=== PATIENT | female | born 1980 | race African-American/Black ===

== ENCOUNTER 2018-06-13 16:31 | Emergency (ER) | payer OTHER, MEDICAID ==
[~2018-06-13] VITALS: Ht 167.6 cm; Wt 82.0 kg
[2018-06-13] MEDS ORDERED: PREDNISONE 20MG TABLET PO STA (21:28)
[2018-06-13] MEDS ORDERED: ALBUTEROL (0.083%) 2.5MG/3ML NEB HHN STA (21:28)
[2018-06-13] MEDS ORDERED: IPRATROPIUM BROMIDE (0.02%) 0.5MG/2.5ML NEB HHN STA (21:28)
[2018-06-14 00:30] VITALS: BP 125/68
== END 2018-06-14 00:30 | disposition home or self-care (01) ==
LOC: ER 16:31
DX: J45.901 Unspecified asthma with (acute) exacerbation (principal); F17.200 Nicotine dependence, unspecified, uncomplicated; Z79.51 Long term (current) use of inhaled steroids; Z88.8 Allergy status to other drugs, medicaments and biological substances
CPT/HCPCS: 94640; 99283; J7512; J7611

== ENCOUNTER 2018-09-07 07:59 | Emergency (ER) | payer OTHER ==
[~2018-09-07] VITALS: Ht 167.6 cm; Wt 81.6 kg
[2018-09-07] MEDS ORDERED: PREDNISONE 20MG TABLET PO STA (10:35)
[2018-09-07] MEDS ORDERED: ALBUTEROL (0.083%) 2.5MG/3ML NEB HHN STA (10:35)
[2018-09-07] MEDS ORDERED: IPRATROPIUM BROMIDE (0.02%) 0.5MG/2.5ML NEB HHN STA (10:35)
[2018-09-07 12:20] VITALS: BP 117/79
== END 2018-09-07 12:48 | disposition home or self-care (01) ==
LOC: ER 07:59
DX: B34.9 Viral infection, unspecified (principal); J45.901 Unspecified asthma with (acute) exacerbation
CPT/HCPCS: 71045; 81025; 94644; 99285; J7512; J7611

== ENCOUNTER 2018-10-24 05:13 | Emergency (ER) | payer OTHER ==
[~2018-10-24] VITALS: Ht 167.6 cm; Wt 73.0 kg
[2018-10-24] MEDS ORDERED: IBUPROFEN 600MG TABLET PO ONE (07:00)
[2018-10-24] MEDS ORDERED: ACETAMINOPHEN 325MG TABLET PO ONE (07:00)
[2018-10-24 08:23] VITALS: BP 150/96
== END 2018-10-24 08:24 | disposition home or self-care (01) ==
LOC: ER 05:13
DX: S60.011A Contusion of right thumb without damage to nail, initial encounter (principal); F17.200 Nicotine dependence, unspecified, uncomplicated; J45.909 Unspecified asthma, uncomplicated; W22.8XXA Striking against or struck by other objects, initial encounter; Y93.89 Activity, other specified; Y92.89 Other specified places as the place of occurrence of the external cause; Y99.8 Other external cause status; Z88.4 Allergy status to anesthetic agent; Z88.5 Allergy status to narcotic agent; Z91.018 Allergy to other foods
CPT/HCPCS: 73140; 81025; 99283

== ENCOUNTER 2018-12-06 08:09 | Emergency (ER) | payer OTHER ==
[~2018-12-06] VITALS: Ht 167.6 cm; Wt 73.0 kg
[2018-12-06] MEDS ORDERED: SODIUM CHLORIDE 0.9% 1,000 ML IV ONE (08:42)
[2018-12-06 09:06] LABS: BASOPHILS % 0.8 % (0.0-2.0); EOSINOPHILS % 0.4 % (0.0-5.0); HEMATOCRIT. 35.8 % (36.0-48.0); HEMOGLOBIN. 11.3 g/dL (12.0-16.0); LYMPHOCYTES % 19.8 % (20.0-50.0); MEAN CORPUSCULAR HEMOGLOBIN 25.5 pg (28.0-32.0); MEAN CORPUSCULAR VOLUME 80.4 fL (81.0-99.0); MEAN PLATELET VOLUME 8.7 fl (7.4-10.4); MONOCYTES % 8.5 % (2.0-8.0); NEUTROPHILS % 70.5 % (40.0-76.0); PLATELET 229 x1000/uL (130-400); RED BLOOD CELL COUNT 4.46 mill/uL (4.2-5.4); RED CELL DISTRIBUTION WIDTH 16.4 % (11.6-14.6)
[2018-12-06 09:09] LABS: CHLORIDE 110 mEq/L (98-107)
[2018-12-06 09:14] LABS: ETHANOL BLOOD < 10 mg/dL
[2018-12-06 09:17] LABS: HCG SCREEN NEGATIVE
[2018-12-06 09:28] LABS: PROTHROMBIN TIME 10.7 sec (9.6-11.0)
[2018-12-06] MEDS ORDERED: GLUCAGON,HUMAN RECOMBINANT 1MG/VIAL IM ONE (09:30)
[2018-12-06] MEDS: GLUCAGON,HUMAN RECOMBINANT 1MG/VIAL IV ONE (10:14)
[2018-12-06] MEDS ORDERED: DEXTROSE 50% WATER 50ML SYRINGE IV ONE (13:45)
[2018-12-06 15:00] VITALS: BP 100/52
== END 2018-12-06 15:20 | disposition short-term general hospital (02) ==
LOC: ER 08:09
DX: E16.2 Hypoglycemia, unspecified (principal); R55 Syncope and collapse; J45.909 Unspecified asthma, uncomplicated; F32.9 Major depressive disorder, single episode, unspecified; Z88.8 Allergy status to other drugs, medicaments and biological substances; Z88.5 Allergy status to narcotic agent; Z91.018 Allergy to other foods; F17.200 Nicotine dependence, unspecified, uncomplicated
CPT/HCPCS: 36415; 73562; 80053; 80320; 82962; 84703; 85025; 85610; 93005; 96374; 99285; J1610; J7030; G0480